=== PATIENT | female | born 1965 | race Caucasian/White ===

== ENCOUNTER 2018-06-23 19:43 | Emergency (ER) | payer OTHER ==
[~2018-06-23] VITALS: Ht 177.8 cm; Wt 97.7 kg
[2018-06-23 19:48] VITALS: TEMP 98.4
[2018-06-23 20:21] LABS: BASO # 0.1 (0.0-0.2); BASO % 0.4 % (0.0-2.0); EOS # 0.3 (0.0-0.7); EOS % 2.2 % (0-4.0); GRAN # 6.8 (1.4-6.5); GRAN % 59.5 % (42.2-75.2); HEMATOCRIT 40.7 % (37.0-47.0); HEMOGLOBIN 14.2 g/dl (12.5-16.0); LYMPH # 3.3 (1.2-3.4); LYMPH % 29.3 % (20.0-51.0); MEAN CELL VOLUME 93 fl (80.0-100.0); MEAN CORPUSCULAR HEMOGLOBIN 32 pg (27.0-31.0); MEAN CORPUSCULAR HGB CONC 35 g/dl (33.0-37.0); MEAN PLATELET VOLUME 10.3 fl (7.4-10.4); MONO % 8.4 % (1.7-9.3); PLATELET COUNT 297 K/mm3 (130-400); RED BLOOD COUNT 4.38 M/mm3 (4.10-5.30); REDCELL DISTRIBUTION WIDTH-CV 12.9 % (11.5-14.5)
[2018-06-23] MEDS ORDERED: NEXIUM 20MG20 MG PO (20:28)
[2018-06-23] MEDS ORDERED: ZOMIG 2.5MG2.5 MG PO (20:28)
[2018-06-23] MEDS ORDERED: BENICAR 20MG TA20 MG PO (20:28)
[2018-06-23] MEDS ORDERED: OMEGA-3 1000 MG1 CAP PO (20:29)
[2018-06-23] MEDS ORDERED: GLUCOSAMINE SUL1 TAB (20:29)
[2018-06-23 20:30] LABS: INR 0.9 (0.8-3.0); PROTHROMBIN TIME 10.5 SECONDS (9.7-12.8)
[2018-06-23 20:32] LABS: ALANINE AMINOTRANSFERASE 28 U/L (9-52); ALBUMIN 4.2 gm/dL (3.5-5.0); ALKALINE PHOSPHATASE 61 U/L (50-136); ANION GAP 14 mmol/L (7-16); AST,SGOT 22 U/L (15-37); BILIRUBIN,TOTAL 0.5 mg/dL (0.0-1.0); BLOOD UREA NITROGEN 18 mg/dL (7-17); C-REACTIVE PROTEIN 0.9 mg/dL (0.0-0.9); CALCIUM 9.2 mg/dL (8.4-10.2); CARBON DIOXIDE 26 mmol/L (22-30); CHLORIDE 98 mmol/L (98-107); CREATININE, serum 1.47 mg/dL (0.52-1.25); GLUCOSE 91 mg/dL (74-106); POTASSIUM 4.3 mmol/L (3.4-5.0); SODIUM 138 mmol/L (137-145); TOTAL PROTEIN 7.4 gm/dL (6.4-8.2)
[2018-06-23 20:33] LABS: PARTIAL THROMBOPLASTIN TIME 31.5 SECONDS (26.0-37.0)
[2018-06-23 20:41] LABS: TROPONIN-I < 0.012 ng/mL (0.000-0.034)
[2018-06-23 21:45] LABS: COLLECTION METHOD CLEAN CATCH
[2018-06-23 22:05] LABS: HYALINE CAST >12 /lpf; MUCOUS Present /lpf; PH 5 (5-8); URINE APPEARANCE Hazy; URINE BACTERIA Rare /hpf; URINE BILIRUBIN Negative (NEGATIVE); URINE BLOOD Negative (NEGATIVE); URINE COLOR Yellow; URINE GLUCOSE Negative (NEGATIVE); URINE KETONE Negative (NEGATIVE); URINE LEUKOCYTE ESTERASE Negative (NEGATIVE); URINE NITRATE Negative (NEGATIVE); URINE PROTEIN(semi-quant) Negative (NEGATIVE); URINE RBC 0-2 /hpf; URINE UROBILINOGEN >=4.0 mg/dL (NEGATIVE)
[2018-06-23 22:30] VITALS: BP 105/68; PULSE 71
== END 2018-06-23 22:30 | disposition home or self-care (01) ==
LOC: COL.ER 19:43
PROVIDERS: Family Medicine
DX: R07.89 Other chest pain (principal); I95.9 Hypotension, unspecified; I10 Essential (primary) hypertension
CPT/HCPCS: J7030

== ENCOUNTER 2020-07-14 15:06 | Outpatient (RCR) | payer OTHER ==
[~2020-07-14 15:06] MED LIST: BENICAR 20MG TA20 MG PO; GLUCOSAMINE SUL1 TAB; NEXIUM 20MG20 MG PO; OMEGA-3 1000 MG1 CAP PO; ZOMIG 2.5MG2.5 MG PO
== END 2020-10-04 | disposition home or self-care (01) ==
LOC: WSOH
DX: G43.909 Migraine, unspecified, not intractable, without status migrainosus (principal); R12 Heartburn; I10 Essential (primary) hypertension; M25.561 Pain in right knee; Y99.0 Civilian activity done for income or pay